=== PATIENT | female | born 1960 | race Caucasian/White ===

== ENCOUNTER 2017-07-19 18:48 | Emergency (ER) | payer BC ==
[2017-07-19] MEDS ORDERED: Sodium Chloride 0.9% 10 ML Syringe FLUSH PRN (19:14)
[2017-07-19] MEDS ORDERED: Sodium Chloride 0.9% 1,000 ML IV ONE (19:14)
[2017-07-19] MEDS ORDERED: Nitroglycerin 0.4 MG Tab.SL SL ONE (19:14)
[2017-07-19] MEDS ORDERED: Aspirin 81 MG Tab.Chew PO ONE (19:14)
[2017-07-19] MEDS ORDERED: Morphine 2 MG/ML Syringe IVPUSH ONE (19:14)
--- NOTE | 2017-07-19 19:17 | EDM.PDOC ---
ED HPI GENERAL MEDICAL PROBLEM - General Chief Complaint: Chest Pain Time Seen by Provider: 07/19/17 19:05 Source of Information: Reports: Patient History Limitations: Reports: No Limitations - History of Present Illness INITIAL COMMENTS - FREE TEXT/NARRATIVE: [place]. She reports she had some dizziness earlier in the day at [place] while she was eating. While driving this evening she began having chest pain, dizziness and felt like she was going to black out. She pulled over to the side of the road and waited and the chest pain resolved. When she began driving again the chest pain recurred; she pulled over and called the ambulance service to come take her to the hospital. Roseline does state recent stress of her grandchildren being in foster care. She was on her way home after visiting them. She states that her chest pain has resolved. She is no longer having any dizziness. Patient denies shortness of breath, diaphoresis, denies any recent travel out of the country, no recent illnesses, she denies any recent sick contact, and she works in a assisted. Did receive the flu vaccine several weeks ago. Patient has no history of myocardial infarction or stroke. States her surgical history includes a left knee replacement in April 2017 and a cholecystectomy in March 2017. The medications she does take include a baby aspirin and and does take hydrocodone as needed for additional knee pain due to her job. Family history includes her father dying of a stroke in his 70s. Patient denies smoking alcohol or drug use. Patient currently denies abdominal pain, denies nausea or vomiting, denies any blood in her urine or stool, she is well denies any emesis of blood. She denies fever or chills. Onset: Today, Sudden Duration: Intermittent, Improving Location: Reports: Chest Quality: Reports: Ache Severity: Moderate Associated Symptoms: Reports: Chest Pain - Related Data Allergies Allergy/AdvReac Type Severity Reaction Status Date / Time vancomycin Allergy Rash Verified 07/19/17 19:08 Home Meds: Home Meds oxyCODONE HCl/Acetaminophen [Endocet 5-325 Tablet] 1 each PO Q4H PRN 01/15/17 [ History] Aspirin 81 mg DAILY 07/19/17 [History] Zolpidem Tartrate [Zolpidem Tartrate] 5 mg BEDTIME 07/19/17 [History] Past Medical History HEENT History: Reports: Impaired Vision Gastrointestinal History: Reports: Other (See Below) Other Gastrointestinal History: recent U/S showed a sluggish gallbladder, consult made for surgery 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: Musculoskeletal History: Reports: Arthritis Other Musculoskeletal History: left knee Endocrine/Metabolic History: Reports: Obesity/BMI 30+ Dermatologic History: Reports: Cellulitis - Infectious Disease History Infectious Disease History: Reports: MRSA - Past Surgical History Musculoskeletal Surgical History: Reports: None, Knee Replacement Other Musculoskeletal Surgeries/Procedures:: L TKA 05/05/17 Social & Family History - Tobacco Use Smoking Status *Q: Former Smoker Years of Tobacco use: 5 Packs/Tins Daily: 0.2 Used Tobacco, but Quit: Yes Month Tobacco Last Used: 2004 Second Hand Smoke Exposure: No - Caffeine Use Caffeine Use: Reports: Coffee - Alcohol Use Days Per Week of Alcohol Use: 0 - Recreational Drug Use Recreational Drug Use: No Drug Use in Last 12 Months: No - Living Situation & Occupation Living situation: Reports: Occupation: Employed ED ROS GENERAL - Review of Systems Review Of Systems: See Below Constitutional: Reports: No Symptoms HEENT: Reports: No Symptoms Respiratory: Reports: No Symptoms Cardiovascular: Reports: Chest Pain Endocrine: Reports: No Symptoms GI/Abdominal: Reports: No Symptoms : Reports: Incontinence (not a new problem) Musculoskeletal: Reports: No Symptoms Skin: Reports: No Symptoms Neurological: Reports: Dizziness Psychiatric: Reports: No Symptoms Hematologic/Lymphatic: Reports: No Symptoms Immunologic: Reports: No Symptoms ED EXAM, GENERAL - Physical Exam Exam: See Below Exam Limited By: No Limitations General Appearance: Alert, WD/WN, No Apparent Distress Eye Exam: Bilateral Eye: EOMI, PERRL Ears: Normal TMs Throat/Mouth: Normal Inspection, Normal Oropharynx Head: Atraumatic, Normocephalic Neck: Normal Inspection, Supple, Non-Tender, Full Range of Motion Respiratory/Chest: No Respiratory Distress, Lungs Clear, Normal Breath Sounds, No Accessory Muscle Use, Chest Non-Tender Cardiovascular: Normal Peripheral Pulses, Regular Rate, Rhythm, No Edema, No Gallop, No JVD, No Murmur, No Rub GI/Abdominal: Normal Bowel Sounds, Soft, Non-Tender, No Organomegaly, No Distention Back Exam: Normal Inspection, Full Range of Motion, NT Extremities: Normal Inspection, Normal Range of Motion, Non-Tender, Normal Capillary Refill, No Pedal Edema Neurological: Alert, Oriented, CN II-XII Intact, Normal Cognition, Normal Gait, Normal Reflexes, No Motor/Sensory Deficits Psychiatric: Normal Affect, Normal Mood Skin Exam: Warm, Dry, Intact, Normal Color, No Rash Lymphatic: No Adenopathy EKG INTERPRETATION EKG Date: 07/19/17 Time: 19:26 Rhythm: NSR Rate (Beats/Min): 65 [place]: Normal P-Wave: Present QRS: Normal ST-T: Other (non-specific t-wave abnormality) QT: Normal Comparison: Change From Previous EKG (artifact in this ECG that makes accurate assessment of all leads difficult.) Course - Vital Signs Last Recorded V/S: Last Vital Signs Temp 35.7 C 07/19/17 18:50 Pulse 66 07/19/17 19:47 Resp 16 07/19/17 19:47 BP 132/67 07/19/17 19:47 Pulse Ox 99 07/19/17 19:47 - Orders/Labs/Meds Orders: Active Orders 24 hr Category Date Time Status EKG Documentation Completion [RC] ROUTINE Care 07/19/17 19:14 Ordered Chest 1V Frontal [CR] Stat Exams 07/19/17 19:14 Taken Chest PE [Ang Chest] [CT] Stat Exams 07/19/17 20:17 Ordered Sodium Chloride 0.9% [Saline Flush] Med 07/19/17 19:14 Active 10 ml FLUSH ASDIRECTED PRN Saline Lock Insert [OM.PC] Routine Oth 07/19/17 19:14 Ordered Medication Orders Sodium Chloride (Saline Flush) 10 ml FLUSH ASDIRECTED PRN PRN Reason: Keep Vein Open Labs: Laboratory Tests 07/19/17 07/19/17 07/19/17 Range/Units 19:35 19:35 19:35 WBC 7.2 (4.0-10.0) x10^3/uL RBC 4.37 (4.00-5.50) x10^6/uL Hgb 11.9 L (12.0-16.0) g/dL Hct 36.4 (33.0-47.0) % MCV 83.3 (78.0-93.0) fL MCH 27.2 (26.0-32.0) pg MCHC 32.7 (32.0-36.0) g/dL RDW Coeff of Stiven 13.5 (10.0-15.0) % Plt Count 262 (130-400) x10^3/uL Neut % (Auto) 72.5 (50.0-80.0) % Lymph % (Auto) 20.6 L (25.0-50.0) % [place] % (Auto) 5.8 (2.0-11.0) % Eos % (Auto) 0.4 (0.0-4.0) % Baso % (Auto) 0.7 (0.2-1.2) % PT 9.9 (9.8-11.8) SEC INR 0.9 L (2.0-3.5) D-Dimer, Quantitative 2.21 H (<=0.58) mg/LFEU Sodium 142 (136-145) mmol/L Potassium 3.8 (3.5-5.1) mmol/L Chloride 105 (98-107) mmol/L Carbon Dioxide 29 (21-32) mmol/L BUN 11 (7-18) mg/dL Creatinine 0.6 (0.55-1.02) mg/dL Est Cr Clr Drug Dosing 90.41 mL/min Estimated GFR (MDRD) > 60 Glucose 100 (74-106) mg/dL Calcium 9.0 (8.5-10.1) mg/dL Corrected Calcium 9.32 (8.5-10.1) mg/dL Total Bilirubin 0.3 (0.2-1.0) mg/dL AST 22 (15-37) U/L ALT 38 (14-59) U/L Alkaline Phosphatase 218 H (46-116) U/L Creatine Kinase 55 (26-192) U/L Creatine Kinase Index 1.1 (0.0-4.0) % CK-MB (CK-2) 0.6 (0.0-3.6) ng/mL Troponin I < 0.017 (<=0.056) ng/mL C-Reactive Protein < 0.2 (<=0.9) mg/dL NT-Pro-B Natriuret Pep 93 (<=125) pg/mL Total Protein 7.5 (6.4-8.2) g/dL Albumin 3.6 (3.4-5.0) g/dL Globulin 3.9 Albumin/Globulin Ratio 0.92 TSH, Ultra Sensitive 1.502 (0.358-3.74) uIU/mL Meds: Medications Generic Name Dose Route Start Last Admin Trade Name Breezy PRN Reason Stop Dose Admin Sodium Chloride 10 ml 07/19/17 19:14 Saline Flush FLUSH ASDIRECTED PRN Keep Vein Open Discontinued Medications Generic Name Dose Route Start Last Admin Trade Name Freq PRN Reason Stop Dose Admin Aspirin 324 mg 07/19/17 19:14 07/19/17 19:41 Aspirin PO 07/19/17 19:15 324 mg ONETIME ONE Administration Sodium Chloride 1,000 mls @ 999 mls/hr 07/19/17 19:14 07/19/17 19:33 Normal Saline IV 07/19/17 20:14 999 mls/hr ONETIME ONE Administration Morphine Sulfate 2 mg 07/19/17 19:14 Morphine IVPUSH 07/19/17 19:15 ONETIME ONE Nitroglycerin 0.4 mg 07/19/17 19:14 Nitrostat SL 07/19/17 19:15 ONETIME ONE - Radiology Interpretation Free Text/Narrative:: Chest x-ray is negative CT Results Date: 07/19/17 (Negative for acute findings) CT Results Time: 21:29 Departure - Departure Time of Disposition: 21:35 Disposition: Home, Self-Care 01 Condition: Good Clinical Impression: Atypical chest pain, Anxiety as acute reaction to exceptional stress Instructions: Nonspecific Chest Pain, [id number], Panic Attacks, [id number] Referrals: PCP,Not In Area [Primary Care Provider] - Forms: ED Department Discharge Additional Instructions: Follow-up with your primary care provider in the next week to 10 days. Your evaluation here in the emergency room this evening did not show any cardiac involvement, he had no pulmonary emboli, no other acute diagnosis for your symptoms. Your chest pain could be related to the increased stress in her life in relation to her grandchildren. However, I would like you to follow up with her primary doctor to rule out other possibilities. Please call the emergency room here with any questions or concerns. - Problem List & Annotations (1) Anxiety as acute reaction to exceptional stress SNOMED Code(s): 94450885 Code(s): F41.1 - GENERALIZED ANXIETY DISORDER; F43.0 - ACUTE STRESS REACTION Status: Acute Priority: Low Current Visit: Yes (2) Atypical chest pain SNOMED Code(s): 585296381 Code(s): R07.89 - OTHER CHEST PAIN Status: Acute Priority: Low Current Visit: Yes - Problem List Review Problem List Initiated/Reviewed/Updated: Yes - My Orders Last 24 Hours: My Active Orders 07/19/17 19:14 EKG Documentation Completion [RC] ROUTINE Chest 1V Frontal [CR] Stat Sodium Chloride 0.9% [Saline Flush] 10 ml FLUSH ASDIRECTED PRN Saline Lock Insert [OM.PC] Routine 07/19/17 20:17 Chest PE [Ang Chest] [CT] Stat - Assessment/Plan Last 24 Hours: My Active Orders 07/19/17 19:14 EKG Documentation Completion [RC] ROUTINE Chest 1V Frontal [CR] Stat Sodium Chloride 0.9% [Saline Flush] 10 ml FLUSH ASDIRECTED PRN Saline Lock Insert [OM.PC] Routine 07/19/17 20:17 Chest PE [Ang Chest] [CT] Stat Assessment:: atypical chest pain anxiety related to familial stress Plan: Follow-up with your primary care provider in the next week to 10 days. Your evaluation here in the emergency room this evening did not show any cardiac involvement, he had no pulmonary emboli, no other acute diagnosis for your symptoms. Your chest pain could be related to the increased stress in her life in relation to her grandchildren. However, I would like you to follow up with her primary doctor to rule out other possibilities. Please call the emergency room here with any questions or concerns.
[2017-07-19 20:14] LABS: CHLORIDE,CL 105 mmol/L (98-107); SODIUM,NA 142 mmol/L (136-145)
[2017-07-19 23:09] VITALS: BP 132/67
== END 2017-07-19 21:39 | disposition home or self-care (01) ==
LOC: VM.ED 18:48
DX: R07.89 Other chest pain (principal); F41.1 Generalized anxiety disorder; F43.0 Acute stress reaction; M19.90 Unspecified osteoarthritis, unspecified site; E66.9 Obesity, unspecified; Z96.652 Presence of left artificial knee joint; Z87.891 Personal history of nicotine dependence; Z79.82 Long term (current) use of aspirin; Z88.1 Allergy status to other antibiotic agents; Z68.33 Body mass index [BMI] 33.0-33.9, adult
CPT/HCPCS: 36415; 71010; 71275; 80053; 82550; 82553; 83880; 84443; 84484; 85025; 85379; 85610; 86140; 93005; 96360; 99285; A9270; J7030